=== PATIENT | male | born 1990 | race Two or more races ===

== ENCOUNTER 2020-10-19 09:08 | Emergency (ER) | payer OTHER ==
[~2020-10-19] VITALS: Ht 167.6 cm; Wt 78.0 kg
[2020-10-19] MEDS ORDERED: EZALLOR SPRINKLE5 MG (09:17)
[2020-10-19] MEDS ORDERED: MUPIROCIN1 G1 TOP (12:45)
[2020-10-19] MEDS ORDERED: AMOX1TAB5 PO (12:45)
== END 2020-10-19 12:57 | disposition home or self-care (01) ==
LOC: ER 09:08
DX: B34.9 Viral infection, unspecified (principal); L03.116 Cellulitis of left lower limb; Z11.52 Encounter for screening for COVID-19

== ENCOUNTER 2025-04-04 18:04 | Emergency (ER) | payer OTHER ==
[~2025-04-04] VITALS: Ht 170.2 cm; Wt 90.7 kg
[~2025-04-04 18:04] MED LIST: AMOX1TAB5 PO; EZALLOR SPRINKLE5 MG; MUPIROCIN1 G1 TOP
[2025-04-04] MEDS ORDERED: FAMOTIDINE/PF 20 MG/2 ML VIAL IV ONE (19:00)
[2025-04-04] MEDS ORDERED: ONDANSETRON HCL 2 MG/ML VIAL IV ONE (19:00)
[2025-04-04] MEDS ORDERED: ONDANSETRON HCL 2 MG/ML VIAL ONE (20:06)
[2025-04-04] MEDS ORDERED: FAMOTIDINE/PF 20 MG/2 ML VIAL ONE (20:06)
[2025-04-04 20:47] LABS: BASO % 0.5 % (0.1-1.2); EOS # 0.13 (0.04-0.54); EOS % 2.3 % (0.7-7.0); LYMPH # 2.24 (1.18-3.74); LYMPH % 40.0 % (19.3-53.1); MEAN PLATELET VOLUME 9.80 fl (9.4-12.4); MONO # 0.54 (0.24-0.82); MONO % 9.6 % (4.7-12.5); NEUT # 2.65 (1.56-6.13); NEUT % 47.4 % (34.0-71.1); RED CELL DISTRIBUTION WIDTH 12.1 % (11.6-14.4)
[2025-04-04 21:11] LABS: ALT/SGPT 51 U/L (12-78); AST/SGOT 19 U/L (15-37); BILIRUBIN TOTAL 0.34 mg/dL (0.3-1.2); BILIRUBIN,CONJUGATED < 0.10 mg/dL (0.0-0.2); BUN CREA RATIO 17 (7.0-25.0); CREATININE SERUM 1.03 mg/dL (0.70-1.30); GFR 81.26; GLOBULINA 3.9 G/DL (2.4-3.5); GLUCOSE FASTING 95 mg/dL (65-100); OSMOLALITY SERUM 284 MOSM/KG (275-295)
[2025-04-04 21:50] LABS: URINE APPEARANCE Clear; URINE BILIRRUBIN Negative (NEGATIVE); URINE BLOOD Small; URINE COLOR Yellow; URINE GLUCOSE Negative (NEGATIVE); URINE KETONE Negative (NEGATIVE); URINE LEUKOCYTE Negative; URINE NITRATE Negative; URINE PROTEIN Negative (NEGATIVE); URINE UROBILINOGEN 1.0 E.U./dl
[2025-04-04 21:54] LABS: URINE RBC 75.8 uL (0.0-20.8)
[2025-04-04 21:57] LABS: URINE BACTERIA 2.4 uL (0.0-1933); URINE CAST 0.14 uL (0.0-1.40); URINE EPITHELIAL CELLS 0.9 uL (0.0-38.8); URINE WBC 0.7 uL (0.0-23.2)
[2025-04-04] MEDS ORDERED: PEPCID AC20 MG PO (23:19)
[2025-04-04] MEDS ORDERED: TAMS0.4C PO (23:19)
[2025-04-04] MEDS ORDERED: KETO10TA2 PO (23:19)
== END 2025-04-04 23:35 | disposition home or self-care (01) ==
LOC: ER 18:05
PROVIDERS: General Practice
DX: K76.0 Fatty (change of) liver, not elsewhere classified (principal); R10.11 Right upper quadrant pain

== ENCOUNTER 2025-05-27 19:04 | Emergency (ER) | payer OTHER ==
[~2025-05-27] VITALS: Ht 167.6 cm; Wt 83.9 kg
[~2025-05-27 19:04] MED LIST changes: +KETO10TA2 PO; +PEPCID AC20 MG PO; +TAMS0.4C PO
[2025-05-27] MEDS ORDERED: ORPHENADRINE CITRATE 30 MG/ML AMPUL IM ONE (20:15)
[2025-05-27] MEDS ORDERED: KETOROLAC TROMETHAMINE 30 MG VIAL IM ONE (20:15)
[2025-05-27] MEDS ORDERED: DEXAMETHASONE SODIUM PHOSPHATE 4 MG/ML VIAL IM ONE (20:15)
[2025-05-27] MEDS ORDERED: MEDROLPACK PO (23:16)
[2025-05-27] MEDS ORDERED: KETO10TA2 PO (23:16)
[2025-05-27] MEDS ORDERED: NORFLEX100MG PO (23:16)
== END 2025-05-28 01:50 | disposition home or self-care (01) ==
LOC: ER 19:05
DX: M75.31 Calcific tendinitis of right shoulder (principal); S43.421A Sprain of right rotator cuff capsule, initial encounter